=== PATIENT | female | born 1965 | race Caucasian/White ===

== ENCOUNTER 2017-05-05 16:18 | Emergency (ER) | payer OTHER ==
[~2017-05-05] VITALS: Ht 160 cm; Wt 83.9 kg
[2017-05-05 16:38] VITALS: BP 140/96
--- NOTE | 2017-05-05 18:00 | NUR ---
51F BIB SELF WITH C/O ANIXETY X 3 MONTHS PROGRESSIVELY GETTING WORSE; PT STS SHE RAN OUT MEDICATION OVER 6 MONTHS AGO; PT STS HX OF ANXIETY, DEPRESSION, AND BI POLAR. PT DENIES ANY SI OR HI. PT IS AOX4 WITH STEADY GAIT. RR ARE EVEN AND UNLABORED. NAD. AWAITING ER MD CUTLER. WILL CONTINUE TO MONITOR.
[2017-05-05] MEDS ORDERED: LORazepam 0.5 MG TAB PO ONE (18:35)
--- NOTE | 2017-05-05 19:07 | NUR ---
Patient discharged with v/s stable. Written and verbal after care instructions given and explained. Patient alert, oriented and verbalized understanding of instructions. Ambulatory with . All questions addressed prior to discharge. ID band removed. Patient advised to follow up with PMD. Rx of Ativan given. Patient educated on indication of medication including possible reaction and side effects. Opportunity to ask questions provided and answered.
[2017-05-05 19:09] VITALS: BP 134/84
== END 2017-05-05 19:07 | disposition home or self-care (01) ==
LOC: MED 16:18
DX: F41.9 Anxiety disorder, unspecified (principal); F32.9 Major depressive disorder, single episode, unspecified; Z88.8 Allergy status to other drugs, medicaments and biological substances
CPT/HCPCS: 99284